=== PATIENT | female | born 1990 | race African-American/Black ===

== ENCOUNTER 2024-06-21 07:28 | Emergency (ER) | payer MEDICAID ==
[~2024-06-21] VITALS: Ht 160 cm; Wt 78.0 kg
[2024-06-21 07:31] VITALS: O2SAT 100
[2024-06-21] MEDS ORDERED: LORA-249 PO ×2 (08:38→08:39)
[2024-06-21 09:17] VITALS: BP 129/84; PULSE 77; RESP 19; TEMP 98.3
== END 2024-06-21 09:18 | disposition home or self-care (01) ==
LOC: ER 07:28
DX: F41.9 Anxiety disorder, unspecified (principal); Z98.890 Other specified postprocedural states
CPT/HCPCS: 99283

== ENCOUNTER 2024-12-11 11:28 | Emergency (ER) | payer MEDICAID ==
[~2024-12-11] VITALS: Ht 160 cm; Wt 83.0 kg
[~2024-12-11 11:28] MED LIST: LORA-249 PO
[2024-12-11 11:33] VITALS: O2SAT 100
[2024-12-11 11:36] VITALS: BP 118/58; PULSE 95; RESP 18; TEMP 98.8; O2SAT 99
[2024-12-11] MEDS ORDERED: FAMOTIDINE 20MG TABLET PO ONE (12:45)
[2024-12-11] MEDS ORDERED: ACETAMINOPHEN 325MG TABLET PO ONE (12:45)
[2024-12-11] MEDS ORDERED: METOCLOPRAMIDE HCL 10MG TABLET PO ONE (12:45)
[2024-12-11] MEDS ORDERED: KETOROLAC 30MG/ML VIAL IM ONE (12:45)
[2024-12-11 13:53] LABS: BASOPHILS % 0.8 % (0.0-2.0); EOSINOPHILS % 0.2 % (0.0-5.0); HEMATOCRIT. 41.1 % (36.0-48.0); HEMOGLOBIN. 13.7 g/dL (12.0-16.0); LYMPHOCYTES % 17.5 % (20.0-50.0); MEAN CORPUSCULAR HEMOGLOBIN 30.9 pg (28.0-32.0); MEAN CORPUSCULAR HGB CONC 33.4 g/dL (31.0-37.0); MEAN CORPUSCULAR VOLUME 92.6 fL (81.0-99.0); MEAN PLATELET VOLUME 8.6 fl (7.4-10.4); MONOCYTES % 4.1 % (2.0-8.0); NEUTROPHILS % 77.4 % (40.0-76.0); PLATELET 299 x1000/uL (130-400); RED BLOOD CELL COUNT 4.44 mill/uL (4.2-5.4); RED CELL DISTRIBUTION WIDTH 13.7 % (11.6-14.6); WHITE BLOOD COUNT 8.7 x1000/uL (4.5-11.0)
[2024-12-11 14:03] LABS: CARBON DIOXIDE 26 mEq/L (21-32); CHLORIDE 109 mEq/L (98-107); POTASSIUM 4.2 mEq/L (3.5-5.1); SODIUM 141 mEq/L (136-145)
[2024-12-11 14:04] LABS: CALCIUM 9.6 mg/dL (8.7-10.4)
[2024-12-11 14:08] LABS: CREATININE 0.8 mg/dL (0.6-1.0)
[2024-12-11 14:09] LABS: GLUCOSE 86 mg/dL (70-105); UREA NITROGEN BLOOD 11 mg/dL (9-23)
[2024-12-11 14:11] LABS: ALANINE AMINOTRANSFERASE 13 IU/L (10-49); ALBUMIN 4.6 g/dL (3.2-4.8); ASPARTATE AMINOTRANSFERASE 15 IU/L (<34); BILIRUBIN TOTAL 0.4 mg/dL (0.1-1.0); PROTEIN TOTAL 8.2 g/dL (6.0-8.3)
[2024-12-11 14:26] LABS: HCG SCREEN NEGATIVE
[2024-12-11] MEDS ORDERED: FLUT9.9S BOTHNSTRLS (14:45)
[2024-12-11] MEDS: ACETAMINOPHEN 325MG TABLET PO ONE (15:15)
[2024-12-11] MEDS: KETOROLAC 30MG/ML VIAL IM ONE (15:15)
[2024-12-11] MEDS: METOCLOPRAMIDE HCL 10MG TABLET PO ONE (15:15)
[2024-12-11] MEDS: FAMOTIDINE 20MG TABLET PO ONE (15:15)
== END 2024-12-11 15:20 | disposition home or self-care (01) ==
LOC: ER 11:28
DX: J02.9 Acute pharyngitis, unspecified (principal)
CPT/HCPCS: 99284; 80053; 81025; 84703; 85025; 36415; 96372; J1885; J8597